=== PATIENT | male | born 1985 | race Caucasian/White ===

== ENCOUNTER 2018-05-22 21:58 | Emergency (ER) | payer OTHER ==
--- NOTE | 2018-05-22 22:12 | ED.PDOC ---
History of Present Illness - General Chief Complaint: Upper Extremity Injury Time Seen by Provider: 05/22/18 22:09 Source: patient, RN notes reviewed, Vital Signs reviewed Exam Limitations: no limitations - History of Present Illness Occurred: other - 5pm Pain - Upper Extremity: moderate: Shoulder, left - was throwing and felt sudden pain similar to previous acl tear Improving Factors: immobilization Worsening Factors: movement Allergies/Adverse Reactions: Allergies NO KNOWN ALLERGY Allergy (Unverified 08/07/13 08:30) Review of Systems - Review of Systems Constitutional: States: no symptoms reported EENTM: States: no symptoms reported Respiratory: States: no symptoms reported Cardiology: States: no symptoms reported Gastrointestinal/Abdominal: States: no symptoms reported Musculoskeletal: States: joint pain, muscle pain Skin: States: no symptoms reported Neurological: States: no symptoms reported Physical Exam - Physical Exam General Appearance: Alert Eyes, Ears, Nose, Throat Exam: normal ENT inspection Neck: non-tender, full range of motion Cardiovascular/Respiratory: regular rate, rhythm Back Exam: normal inspection Shoulder Exam: normal inspection - pain to shoulder extention, no laxity to joint, no weakness to rotator cuff muscles, tenderness over deltoid muscle Elbow/Forearm Exam: normal inspection, non-tender, no evidence of injury, normal ROM Wrist Exam: normal inspection, non-tender, no evidence of injury, normal ROM Hand Exam: normal inspection, non-tender, no evidence of injury, normal ROM Departure - Departure Clinical Impression: Shoulder sprain Qualifiers: Encounter type: initial encounter Shoulder sprain type: unspecified sprain Laterality: left Qualified Code(s): S43.402A - Unspecified sprain of left shoulder joint, initial encounter Disposition: Discharge to Home or Self Care Departure Forms: ED Discharge - Pt. Copy, Patient Portal Self Enrollment Instructions: DI for Arm Pain Referrals: Darrell De La Torre MD [Primary Care Provider] - 1-2 Weeks
[2018-05-22] MEDS ORDERED: IBUPROFEN 200 MG TAB PO ONE (22:19)
[2018-05-22 22:28] VITALS: TEMP 97.5
--- NOTE | 2018-05-22 22:50 | RAD ---
2 VIEWS LEFT SHOULDER RADIOGRAPHIC SERIES. INDICATIONS: Pain post trauma COMPARISONS: No comparisons are currently available. FINDINGS: No fractures or dislocations. The partially visualized left ribs and left clavicle are intact. Partially visualized lungs are clear. No left apical pneumothorax. No radiopaque soft tissue foreign bodies or soft tissue gas. IMPRESSION: No fractures, dislocations or radiopaque foreign bodies. Electronically signed by: Qamar Guerrier MD 05/22/2018 10:48 PM CDT
[2018-05-22 23:15] VITALS: BP 115/75; O2SAT 97
== END 2018-05-22 23:05 | disposition home or self-care (01) ==
LOC: ER 21:58
DX: S43.402A Unspecified sprain of left shoulder joint, initial encounter (principal); Z87.828 Personal history of other (healed) physical injury and trauma; X50.1XXA Overexertion from prolonged static or awkward postures, initial encounter; Y99.0 Civilian activity done for income or pay; Y92.69 Other specified industrial and construction area as the place of occurrence of the external cause

== ENCOUNTER → 2019-12-17 | Outpatient (CLI) | payer BC ==
--- NOTE | 2019-12-17 10:25 | RAD ---
2 radiographs left hip Indication: PAIN Comparison: None. Impression: Prior ORIF of the left femoral neck fracture which is likely healed. CT could better evaluate as clinically indicated. No acute displaced fracture identified. Mild left hip joint space narrowing noted. Electronically signed by: Hi Coreas MD 12/17/2019 10:23 AM [facility]
== END ==
LOC: RAD 09:57
PROVIDERS: ATTEND Nurse Practitioner
DX: M25.852 Other specified joint disorders, left hip (principal); Z98.890 Other specified postprocedural states; Z87.81 Personal history of (healed) traumatic fracture

== ENCOUNTER → 2019-12-21 | Outpatient (CLI) | payer BC ==
--- NOTE | 2019-12-23 08:17 | CT ---
EXAM: Lower Extremity CLINICAL HISTORY: PAIN IN LEFT HIP JOINT COMPARISON STUDY: 2 view x-rays of the left hip from December 17, 2019 TECHNICAL: Axial noncontrast CT images of the left hip with sagittal and coronal reconstructions. FINDINGS: The left hip is in anatomic alignment. There is minimal joint space loss of the left hip but no significant subchondral sclerosis. No significant periarticular osteophytic changes and no erosive changes. [address] across the left femoral neck and are chronic. A third screw has been removed. There is no CT evidence of hardware loosening. Metallic artifact limits detailed evaluation. There is no acute fracture of the left proximal femur or visible pelvic ring. No visible joint effusion. There are minimal subcutaneous inflammatory changes lateral to the greater trochanter but no visible fluid collection. IMPRESSION: 1. 2 internal fixation screws of the left femoral neck and distant removal of a third. No evidence of hardware loosening or failure. 2. No acute fracture or dislocation of the left hip. 3. Subtle inflammation can indicate greater trochanteric bursitis. This exam was performed according to our departmental dose-optimization program, which includes automated exposure control, adjustment of the mA and/or kV according to patient size and/or use of iterative reconstruction technique. Electronically signed by: Eugene Causey MD 12/23/2019 8:15 AM [employer]
== END ==
LOC: CT 09:57
PROVIDERS: ATTEND Nurse Practitioner
DX: M25.552 Pain in left hip (principal); M76.892 Other specified enthesopathies of left lower limb, excluding foot; Z98.890 Other specified postprocedural states